=== PATIENT | male | born 1980 | race Caucasian/White ===

== ENCOUNTER 2017-10-26 13:10 | Emergency (ER) | payer OTHER ==
[2017-10-26 13:20] VITALS: O2SAT 96
--- NOTE | 2017-10-26 13:44 | EDPHY ---
H & P Smoking Status: Never smoked Time Seen by Provider: 10/26/17 13:25 HPI/ROS: CHIEF COMPLAINT: Back injury HISTORY OF PRESENT ILLNESS: 37-year-old man injured his back when he lost his balance on his snowboard hit the left side of his lower back and pelvis on a rock at 10:25 a.m. today. He felt some tingling and weakness and numbness in his left leg just afterwards which lasted about an hour but is completely resolved at this time. Still has pain, worse with movement or palpation. Moderate in severity. Happened just after the fall. REVIEW OF SYSTEMS: Eye: no change in vision ENT: no sore throat Cardiac: no chest pain or syncope Pulmonary: no cough or SOB Abdomen: no vomiting, diarrhea, abdominal pain Musculoskeletal: HPI Skin: no rash Neuro: HPI, no head injury or loss of consciousness Constitutional: no fever : no urinary symptoms A comprehensive 10 point review of systems is otherwise negative aside from elements mentioned in the history of present illness. PAST MEDICAL HISTORY: Negative Social history: No alcohol General Appearance: Alert and conversant, cooperative. Eyes: No scleral icterus. ENT, Mouth: Normal mucous membranes. Respiratory: Normal respiratory effort, breath sounds equal, lungs are clear to auscultation. Cardiovascular: Regular rate and rhythm. Gastrointestinal: Abdomen is soft and non tender. No rebound or guarding. Neurological: Alert and oriented x3. Normally conversant. Face symmetric, normal movement and sensation in all extremities. Normal dorsiflexion and plantar flexion including extensor hallucis longus 5/5, patellar reflexes 2+ bilaterally, toes downgoing, no clonus. Skin: Abrasion and bruising over the left lower back along the left paraspinal area below the pubic brim. No midline spinal tenderness. Musculoskeletal: No left hip pain with rotation or axial loading. Pelvis stable to compression. Psychiatric: Not agitated. Emergency Department course/MDM: Patient declined pain medication. Plan for lumbar spine and pelvis x-rays, urine microscopic. 1401: His x-rays personally interpreted by me of lumbar spine and pelvis as negative. 1420: Results discussed, probable neurapraxia with direct trauma over his sciatic nerve, all lower extremity neurologic symptoms have resolved at this time. Patient declined narcotic, wants to try Toradol and acetaminophen, discharge if urine is negative for blood. 1515: microscopic hematuria; CT discussed and consented for evaluation of renal injury; signed out to Han at this time. (Lul Merlos) Constitutional: Initial Vital Signs Temperature (C) 36.8 C 10/26/17 13:15 Heart Rate 111 H 10/26/17 13:15 Respiratory Rate 17 10/26/17 13:15 Blood Pressure 98/76 L 10/26/17 13:15 O2 Sat (%) 96 10/26/17 13:15 O2 Delivery Mode Room Air Allergies/Adverse Reactions: No Known Allergies Allergy (Unverified 10/26/17 13:15) Home Medications: Medication Instructions Recorded Hydrocodone/APAP 5/325 [[place] 1 tab PO Q6H PRN #16 tab 10/26/17 5/325 (RX)] Medical Decision Making Differential Diagnosis: Differential considered including but not limited to neurapraxia, spinal fracture, lumbar contusion, spinal cord injury. (Lul Merlos) Other Provider: I assumed care of this patient at 3:[address] results. Was informed by Dr. Bland at 4:15 p.m. that the patient has a superior medial left iliac crest fracture. He has no intra-abdominal trauma, no renal contusions. He does have a nonobstructing stone in the pole of his left kidney. Of note the patient has enlarged lymph nodes which will require follow-up CBC, testicular ultrasound, and a follow-up CT scan in 6 months. Patient's course was discussed with Dr. Homre Montes. Plan of action is to weightbear as tolerated. Crutches if needed although muscle strain will be less if patient is able to bear weight. This was discussed with the patient. He is comfortable being discharged. He was given a prescription for Vicodin. Patient is also aware of the CT findings requiring follow-up. (María Short) - Data Points Medications Given: Discontinued Medications Acetaminophen (Tylenol) 1,000 mg PO EDNOW ONE Stop: 10/26/17 14:22 Last Admin: 10/26/17 14:30 Dose: 1,000 mg Hydrocodone Bitart/Acetaminophen ([place] 5/325) 2 tab PO EDNOW ONE Stop: 10/26/17 16:28 Last Admin: 10/26/17 16:32 Dose: 2 tab Ketorolac Tromethamine (Toradol) 30 mg IVP EDNOW ONE Stop: 10/26/17 14:22 Last Admin: 10/26/17 14:30 Dose: 30 mg Departure - Departure Disposition: Home, Routine, Self-Care Clinical Impression: Left lower back contusion, Fracture of iliac crest Condition: Good Instructions: Pelvic Fracture (ED), Contusion in Adults (ED) Additional Instructions: Referred to Dr. Montes orthopedist on-call orthopedic surgeon. You may weightbear as tolerated. You can tolerate walking it is actually better to bear weight without crutches. However, initially, you may need crutches. Please follow up with your primary care physician regarding the lymph nodes seen on your CT scan. Radiology suggestion is that you should have a repeat CBC , a testicular ultrasound, and a follow-up CT scan in 6 months. If you do not have a primary care physician, you been given referral to Dr. Jeff Navarrete. He has a primary care physician. Please use ibuprofen 600 mg every 6-8 hours for moderate pain relief and anti inflammation. You been given a prescription for Vicodin. Please use this as needed for more severe pain. Referrals: Jeff Navarrete DO [Medical Doctor] - As per Instructions Homer Montes MD [Medical Doctor] - As per Instructions (Please follow up in 1-2 to 2 weeks for re-examination.) Prescriptions: Hydrocodone/APAP 5/325 [[place] 5/325 (RX)] 1 tab PO Q6H PRN #16 tab PRN Reason: Pain
[2017-10-26] MEDS ORDERED: ACETAMINOPHEN 500 MG TAB PO ONE (14:21)
[2017-10-26] MEDS ORDERED: KETOROLAC 30 MG/1 ML SDV IVP ONE (14:21)
[2017-10-26] MEDS ORDERED: IOPAMIDOL (ISOVUE-300) 100 ML BTL ONE (15:31)
[2017-10-26] MEDS ORDERED: HYDROCODONE/APAP 5/325 TAB PO ONE (16:27)
[2017-10-26 17:27] VITALS: BP 118/75; PULSE 69; RESP 16; TEMP 97.9
== END 2017-10-26 17:27 | disposition home or self-care (01) ==
DX: S32.302A Unspecified fracture of left ilium, initial encounter for closed fracture (principal); S30.0XXA Contusion of lower back and pelvis, initial encounter; V00.311A Fall from snowboard, initial encounter
CPT/HCPCS: 82947-QW; 96374; J1885; Q9967